=== PATIENT | male | born 1970 | race Caucasian/White ===

== ENCOUNTER 2020-06-20 14:46 | Outpatient (CLI) | payer OTHER, SELFPAY ==
--- NOTE | ~2020-06-20 | MR_ITS ---
EXAMINATION: MR shoulder LT wo con DATE: 06/20/2020 15:41 INDICATION: Left shoulder pain TECHNIQUE: Magnetic resonance imaging (MRI) of the left shoulder was performed without intravenous co ntrast. Sequences included axial PD-weighted FS FSE, coronal oblique PD-weighted FS FSE, coronal obli que T2-weighted FS FSE, sagittal PD-weighted FS FSE, and sagittal T1-weighted SE. COMPARISON: Left shoulder radiographs dated 06/13/2020 FINDINGS: Coracoacromial arch: The acromion undersurface is curved in morphology (type II). Normal variant unfused preacromial os ac romiale. The coracoacromial ligament is normal. Mild acromioclavicular osteoarthritis. Rotator cuff: Supraspinatus and infraspinatus tendinopathy. Likely full-thickness versus bursal sided tear of the c onjoined portion of the supraspinatus and infraspinatus tendons which measures approximately 12 mm AP at the junction of the superior and middle facets. The tear defect. Irregular tapering to a point ap proximately 1.4 cm medial to the footplate. The teres minor and subscapularis tendons are normal. Nor mal rotator cuff muscle bulk and signal. Biceps tendon, glenoid labrum and glenohumeral cartilage: Long head of the biceps tendon is normal. Subtle linear increased signal extending laterally into the substance of the superior to posterior superior glenoid labrum consistent with labral tear. Addition al tear at the anteroinferior to inferior glenoid labrum with cluster of 3 small para labral cysts to gether measuring 10 x 6 x 5 mm which appears to arise near the 6:00 position of the glenoid labrum. G lenohumeral cartilage appears relatively preserved. Tiny marginal osteophytes along the inferior teodoro oid. Fluid: Physiologic amount of fluid in the glenohumeral joint and biceps tendon sheath. No loose osteochondra l bodies. Small amount of fluid in the subacromial/subdeltoid bursa which could be related to either mild bursitis and/or communication of fluid from the glenohumeral joint space through the full-thickn ess rotator cuff tear. Bones: Normal marrow signal with no fracture or abnormal marrow replacing process. IMPRESSION: 1. Mild supraspinatus and infraspinatus tendinopathy with small full-thickness tear at the conjoined portion of the tendons. 2. Minimal glenohumeral osteoarthritis with tears at the superior to posterior superior and inferior to anteroinferior glenoid labrum, the latter with cluster of 3 tiny para labral cyst. 3. Mild acromioclavicular osteoarthritis. 4. Normal variant preacromial os acromiale. 5. Small amount of fluid in the subacromial/subdeltoid bursa which could be related to either bursiti s and/or communication with the glenohumeral joint space through the full-thickness rotator cuff tear . Reviewed, dictated and finalized at location A. IMPRESSION: 1. Mild supraspinatus and infraspinatus tendinopathy with small full-thickness tear at the conjoined portion of the tendons. 2. Minimal glenohumeral osteoarthritis with tears at the superior to posterior superior and inferior to anteroinferior glenoid labrum, the latter with cluster of 3 tiny para labral cyst. 3. Mild acromioclavicular osteoarthritis. 4. Normal variant preacromial os acromiale. 5. Small amount of fluid in the subacromial/subdeltoid bursa which could be rel ated to either bursitis and/or communication with the glenohumeral joint space through the full-thickness rotator cuff tear.
== END 2020-06-20 14:47 | disposition home or self-care (01) ==
LOC: ANHIMG 14:53
PROVIDERS: PCP Family Medicine; Visit Provider Orthopaedic Surgery
DX: M25.812 Other specified joint disorders, left shoulder (principal); S42.125A Nondisplaced fracture of acromial process, left shoulder, initial encounter for closed fracture; X58.XXXA Exposure to other specified factors, initial encounter; M19.012 Primary osteoarthritis, left shoulder
CPT/HCPCS: 73221